=== PATIENT | female | born 1975 | race Caucasian/White ===

== ENCOUNTER 2024-03-31 16:51 | Emergency (ER) | payer BC ==
[2024-03-31 17:01] VITALS: BP 131/78; PULSE 86; RESP 18; TEMP 98.4; BMI 27.4
[2024-03-31 19:02] LABS: HEMATOCRIT 38.1 % (32.4-45.2); MCH 28.2 pg (25.7-33.7); MCHC 34.1 g/dl (32.0-36.0); MEAN CELL VOLUME 82.7 fl (80-96); MEAN PLT VOLUME 8.6 fl (7.5-11.1); PLATELET COUNT 271 10^3/uL (134-434); RBC 4.61 M/mm3 (3.60-5.2); RDW 12.9 % (11.6-15.6); WHITE BLOOD COUNT 13.1 K/mm3 (4.0-10.0)
[2024-03-31 19:06] LABS: EPI CELLS 5 /uL (0-25.1); HYALINE CASTS 0 /uL (0-3.1); PH,URINE 5.5 (5.0-8.0); URINE APPEARANCE CLEAR; URINE BACTERIA >9,000 /uL (0-1359); URINE BILIRUBIN NEGATIVE (NEGATIVE); URINE COLOR YELLOW; URINE GLUCOSE (UA) NEGATIVE (NEGATIVE); URINE KETONE NEGATIVE (NEGATIVE); URINE LEUK ESTERASE NEGATIVE (NEGATIVE); URINE NITRITE POSITIVE (NEGATIVE); URINE PROTEIN NEGATIVE (NEGATIVE); URINE RBC 7 /uL (0-23.9); URINE UROBILINOGEN 0.2 mg/dL (0.2-1.0); URINE WBC 14 /uL (0-25.8)
[2024-03-31 19:46] LABS: POTASSIUM 4.2 mmol/L (3.5-5.1)
[2024-03-31 19:49] LABS: CALCIUM 9.6 mg/dL (8.5-10.1)
[2024-03-31 19:50] LABS: BLOOD UREA NITROGEN 17.2 mg/dL (7-18)
[2024-03-31 19:53] LABS: CREATININE 0.9 mg/dL (0.55-1.3)
[2024-03-31 19:54] LABS: BILIRUBIN,TOTAL 0.6 mg/dL (0.2-1)
[2024-03-31 19:55] LABS: TOT PROT 9.1 g/dl (6.4-8.2)
[2024-03-31] MEDS ORDERED: KETOROLAC TROMETHAMINE 30 MG/1 ML VIAL ONE (20:02)
[2024-03-31] MEDS: SODIUM CHLORIDE 0.9% 500 ML INFUS.BAG IV ONE (20:11)
[2024-03-31] MEDS: KETOROLAC TROMETHAMINE 30 MG/1 ML VIAL IVPUSH ONE (20:11)
[2024-03-31] MEDS ORDERED: CEFTRIAXONE 1 GM/50 ML BAG ONE (20:13)
[2024-03-31] MEDS: CEFTRIAXONE 1 GM in DEXTROSE 5%-WATER - 50 ML IVPB ONE (20:29)
== END 2024-03-31 23:50 | disposition home or self-care (01) ==
LOC: JER 16:51
PROC: 3E03329 Introduction of Other Anti-infective into Peripheral Vein, Percutaneous Approach (ICD-10-PCS; principal; 2024-03-31)
PROC: 3E0333Z Introduction of Anti-inflammatory into Peripheral Vein, Percutaneous Approach (ICD-10-PCS; 2024-03-31)
DX: R10.32 Left lower quadrant pain (principal); N30.00 Acute cystitis without hematuria
CPT/HCPCS: 36415; 74176-TC; 80053; 81003; 83690; 85027; 87086; 87186; 99284-25